=== PATIENT | male | born 1990 | race Caucasian/White ===

== ENCOUNTER 2018-09-04 10:29 | Emergency (ER) | payer MEDICAID ==
[~2018-09-04] VITALS: Wt 80.0 kg
[2018-09-04] MEDS ORDERED: ONDANSETRON 4 MG INJ IV STA (12:00)
[2018-09-04] MEDS ORDERED: SOD CHLORIDE 0.9% 1,000 ML IV STA (12:00)
[2018-09-04] MEDS ORDERED: morphine 2 MG INJ IV STA (12:00)
--- NOTE | 2018-09-04 12:02 | ERD ---
ER Documentation Chief Complaint Chief Complaint RIGH SIDED PAIN ONSET AT 0900 HPI 27-year-old male, previously healthy, presents to the emergency department, complaining of acute onset of right flank pain that started approximately 3 hours ago. The pain is sharp, constant, 8/10, associated with nausea. The patient denies history of previous episodes. He has not noticed any hematuria, no dysuria. No diarrhea or constipation. No fever or chills. ROS All systems reviewed and are negative except as per history of present illness. Medications Home Meds Active Scripts Tamsulosin Hcl* (Flomax*) 0.4 Mg Cap.er.24h, 0.4 MG PO BID, #10 CAP Prov:BARBARA BOLES MD 09/04/18 Ondansetron Hcl* (Zofran*) 4 Mg Tablet, 4 MG PO Q8H PRN for NAUSEA AND/OR VOMITING, #15 TAB Prov:BARBARA BOLES MD 09/04/18 Ketorolac Tromethamine* (Ketorolac Tromethamine*) 10 Mg Tablet, 10 MG PO TID for 15 Days, TAB Prov:BARBARA BOLES MD 09/04/18 Allergies Allergies: Coded Allergies: No Known Allergy (Unverified , 09/04/18) PMhx/Soc Medical and Surgical Hx: pt denies Medical Hx, pt denies Surgical Hx Hx Alcohol Use: No Hx Substance Use: No Hx Tobacco Use: No Physical Exam Vitals Vital Signs Date Temp Pulse Resp B/P (MAP) Pulse Ox O2 O2 Flow FiO2 Time Delivery Rate 09/04/18 98.2 60 17 116/78 98 Room Air 14:13 (91) 09/04/18 97.1 78 18 128/82 99 10:33 (97) Physical Exam Const: No acute distress Head: Atraumatic Eyes: Normal Conjunctiva ENT: Normal External Ears, Nose and Mouth. Neck: Full range of motion. No meningismus. Resp: Clear to auscultation bilaterally Cardio: Regular rate and rhythm, no murmurs Abd: Soft, non tender, non distended. Normal bowel sounds Skin: No petechiae or rashes Back: No midline or flank tenderness Ext: No cyanosis, or edema Neur: Awake and alert Psych: Normal Mood and Affect Result Diagram: 09/04/18 1207 09/04/18 1207 Results 24 hrs Laboratory Tests Test 09/04/18 12:07 White Blood Count 6.2 10^3/ul Red Blood Count 5.11 10^6/ul Hemoglobin 14.8 g/dl Hematocrit 41.8 % Mean Corpuscular Volume 81.8 fl Mean Corpuscular Hemoglobin 29.0 pg Mean Corpuscular Hemoglobin Concent 35.4 g/dl Red Cell Distribution Width 11.7 % Platelet Count 184 10^3/UL Mean Platelet Volume 10.1 fl Immature Granulocytes % 0.300 % Neutrophils % 43.4 % Lymphocytes % 47.8 % Monocytes % 6.5 % Eosinophils % 1.5 % Basophils % 0.5 % Nucleated Red Blood Cells % 0.0 /100WBC Immature Granulocytes # 0.020 10^3/ul Neutrophils # 2.7 10^3/ul Lymphocytes # 3.0 10^3/ul Monocytes # 0.4 10^3/ul Eosinophils # 0.1 10^3/ul Basophils # 0.0 10^3/ul Nucleated Red Blood Cells # 0.0 10^3/ul Urine Color YELLOW Urine Clarity CLEAR Urine pH 7.0 Urine Specific [place] 1.015 Urine Ketones NEGATIVE mg/dL Urine Nitrite NEGATIVE mg/dL Urine Bilirubin NEGATIVE mg/dL Urine Urobilinogen NEGATIVE mg/dL Urine Leukocyte Esterase NEGATIVE Jessy/ul Urine Hemoglobin NEGATIVE mg/dL Urine Glucose NEGATIVE mg/dL Urine Total Protein NEGATIVE mg/dl Sodium Level 142 mmol/L Potassium Level 3.8 mmol/L Chloride Level 104 mmol/L Carbon Dioxide Level 28 mmol/L Anion Gap 10 Blood Urea Nitrogen 13 mg/dl Creatinine 0.93 mg/dl Est Glomerular Filtrat Rate mL/min > 60 mL/min Glucose Level 100 mg/dl Calcium Level 9.7 mg/dl Total Bilirubin 0.8 mg/dl Direct Bilirubin 0.00 mg/dl Indirect Bilirubin 0.8 mg/dl Aspartate Amino Transf (AST/SGOT) 20 IU/L Alanine Aminotransferase (ALT/SGPT) 19 IU/L Alkaline Phosphatase 53 IU/L Total Protein 7.2 g/dl Albumin 4.6 g/dl Globulin 2.60 g/dl Albumin/Globulin Ratio 1.76 Lipase 84 U/L Current Medications Medications Dose Sig/Db Start Time Status Last (Trade) Ordered Route PRN Stop Time Admin Dose Reason Admin Sodium 1,000 ml @ Q1H STAT 09/04/18 DC 09/04/18 Chloride 1,000 mls/hr IV 12:00 12:12 09/04/18 12:59 Morphine 2 mg ONCE STAT 09/04/18 DC 09/04/18 Sulfate IV 12:00 12:12 (morphine) 09/04/18 12:08 Ondansetron 4 mg ONCE STAT 09/04/18 DC 09/04/18 HCl (Zofran IV 12:00 12:11 Inj) 09/04/18 12:08 Ketorolac 30 mg ONCE STAT 09/04/18 DC 09/04/18 Tromethamine IV 13:11 13:16 (Toradol) 09/04/18 13:13 Sodium 1,000 ml @ Q1H ONCE 09/04/18 DC 09/04/18 Chloride 1,000 mls/hr IV 13:30 13:16 09/04/18 14:14 Tamsulosin 0.4 mg ONCE ONCE 09/04/18 DC 09/04/18 HCl PO 13:30 13:23 (Flomax) 09/04/18 13:31 DIAGNOSTIC IMAGING REPORT Patient: GISELE MOREAU : 1990 Age: 27 Sex: M MR #: [id number] DOS: 09/04/18 1200 Ordering MD: BARBARA BOLES MD Location: E Room/Bed: PROCEDURE: CT abdomen and pelvis without contrast. CLINICAL INDICATION: Right flank pain TECHNIQUE: CT scan of the abdomen and pelvis without contrast was performed and is reconstructed at 2.5 mm contiguous axial intervals from the dome of the diaphragm to the inferior pubic rami.. The patient was scanned without intravenous contrast. Sagittal and coronal reformatted images were obtained from the axial source images. The calculated radiation dose measures 632 mGy centimeters. The CTDI measures 11 mGy. Individualized dose optimization technique was used for the performance of this exam. This included 1. Automated exposure control. 2. Adjustment of the mA and / or kV according to the patient's size. 3. Use of iterative reconstructed technique. COMPARISON: None. FINDINGS: The lung bases are clear of any infiltrate or nodule. No effusion is seen. The liver is of normal size, contour and attenuation with no mass or ductal dilatation. No gallstones are visualized. No splenic, adrenal or pancreatic abnormalities present. Kidneys are of normal size and contour. There are bilateral nonobstructing renal calculi, the largest of which is in the mid to lower pole of the right kidney measuring 4 mm in diameter. Noted is mild left hydroureter nephrosis with a 5 mm calculus in the proximal ureter and of moderate right hydroureter nephrosis with a 6 mm calculus in the mid to distal abdominal ureter. No bladder masses stone is seen. Prostate and seminal vesicles are normal. There is no aneurysm. No adenopathy is present. No bowel mass or obstruction is present. The appendix is normal. No phlegmon, ascites or pneumoperitoneum is visualized. The osseous structures are intact. IMPRESSION: Moderate right hydroureter nephrosis with 6 mm stone distal abdominal ureter. Mild left hydroureter nephrosis with 5 mm stone proximal ureter. Bilateral nonobstructing renal calculi. .Pawan Muir MD, MD Date Time Electronically viewed and signed by .Pawan Muir MD, MD on 09/04/2018 12:52 .A/ CC: BARBARA BOLES MD [id number] Procedures/MDM Vital signs stable. Differential diagnosis include but not limited to: UTI, colitis, gastroenteritis, kidney stones, irritable bowel syndrome, inflammatory bowel syndrome, malabsorption syndrome, cholelithiasis, food intolerance, medication side effect, pancreatitis, diverticulitis, bowel obstruction. Physical examination and clinical presentation consistent most likely with nonobstructive kidney stones During the ED course the patient remained stable, no new complaints. The patient received treatment with IV fluids and IV medications presenting overall improvement of the symptoms. Results and clinical impression discussed with the patient who agrees with management. The patient is stable to be treated outpatient and will be discharged home; some side effects of prescribed medications (headache, rash, nausea, vomiting, diarrhea, drowsiness, habituation, bleeding, hypertension, interactions with other medications) were reviewed. Follow up with the primary care provider in the next 48h is recommended. If symptoms persist, worsen or new symptoms develop, then patient should return to the ED immediately. Instructions explained and given directly by me to the patient with acknowledgment and demonstrated understanding. Disclaimer: Inadvertent spelling and grammatical errors are likely due to EHR/dictation software use and do not reflect on the overall quality of patient care. Also, please note that the electronic time recorded on this note does not necessarily reflect the actual time of the patient encounter. Departure Diagnosis: Primary Impression: Abdominal pain Additional Impression: Urolithiasis Condition: Stable Additional Instructions: Thank you very much for allowing us to participate in your care. Your health and safety is our top priority at [facility]. Call your primary care doctor TOMORROW for an appointment during the next 2-4 days and bring all the information and medications prescribed. Have prescriptions filled and follow precisely the directions on the label. If the symptoms get worse and your provider is unavailable, return to the Emergency Department immediately. BARBARA BOLES MD Sep 04, 2018 12:02
[2018-09-04] MEDS ORDERED: KETOROLAC 30 MG INJ IV STA (13:11)
[2018-09-04] MEDS ORDERED: TAMSULOSIN (SR) 0.4 MG CAP PO ONE (13:30)
[2018-09-04] MEDS ORDERED: SOD CHLORIDE 0.9% 1,000 ML IV ONE (13:30)
[2018-09-04] MEDS ORDERED: ONDA4TAB8 PO (14:01)
[2018-09-04] MEDS ORDERED: KETO10TA PO (14:01)
[2018-09-04] MEDS ORDERED: TAMS-14 PO (14:01)
[2018-09-04 14:13] VITALS: BP 116/78; PULSE 60; RESP 17
== END 2018-09-04 14:14 | disposition home or self-care (01) ==
LOC: FTE 10:29
DX: N20.9 Urinary calculus, unspecified (principal)
CPT/HCPCS: 36415; 74176; 80053; 81003; 83690; 85025; 96361; 96374; 96375; J1885; J2270; J2405; J7030; Z7502; Z7610